=== PATIENT | female | born 1995 | race African-American/Black ===

== ENCOUNTER 2018-08-15 19:43 | Inpatient (IN) | payer OTHER ==
[~2018-08-15] VITALS: Ht 167.6 cm; Wt 70.8 kg
[2018-08-15] MEDS ORDERED: SODIUM CHLORIDE 0.9% 1,000 ML IV ONE (23:04)
[2018-08-15 23:07] LABS: BASOPHILS % 0.7 % (0.0-2.0); EOSINOPHILS % 0.2 % (0.0-5.0); HEMATOCRIT. 38.9 % (36.0-48.0); HEMOGLOBIN. 12.9 g/dL (12.0-16.0); LYMPHOCYTES % 29.8 % (20.0-50.0); MEAN CORPUSCULAR HEMOGLOBIN 30.2 pg (28.0-32.0); MEAN CORPUSCULAR VOLUME 91.2 fL (81.0-99.0); MEAN PLATELET VOLUME 9.2 fl (7.4-10.4); MONOCYTES % 7.2 % (2.0-8.0); NEUTROPHILS % 62.1 % (40.0-76.0); PLATELET 204 x1000/uL (130-400); RED BLOOD CELL COUNT 4.27 mill/uL (4.2-5.4); RED CELL DISTRIBUTION WIDTH 12.2 % (11.6-14.6)
[2018-08-15 23:12] LABS: CHLORIDE 106 mEq/L (98-107)
[2018-08-15 23:16] LABS: ETHANOL BLOOD < 10 mg/dL; HCG SCREEN NEGATIVE
[2018-08-15 23:17] LABS: CLARITY URINE TURBID (CLEAR); COLOR URINE YELLOW (YELLOW); KETONES URINE TRACE (NEGATIVE); LEUKOCYTE ESTERASE URINE 2+ (NEGATIVE); NITRITE URINE NEGATIVE (NEGATIVE); OCCULT BLOOD URINE NEGATIVE (NEGATIVE); PROTEIN URINE 1+ (NEGATIVE); SPECIFIC GRAVITY URINE 1.054 (1.005-1.030)
[2018-08-15 23:33] LABS: *AMPHETAMINES SCREEN URINE NEGATIVE (NEGATIVE); *BARBITURATES SCREEN URINE NEGATIVE (NEGATIVE)
[2018-08-15 23:34] LABS: *BENZODIAZEPINES SCREEN URINE NEGATIVE (NEGATIVE); *COCAINE SCREEN URINE NEGATIVE (NEGATIVE); METHADONE URINE SCREEN NEGATIVE (NEGATIVE); OPIATES URINE SCREEN NEGATIVE (NEGATIVE); PHENCYCLIDINE URINE SCREEN NEGATIVE (NEGATIVE)
[2018-08-15 23:35] LABS: CANNABINOID URINE SCREEN NEGATIVE (NEGATIVE)
[2018-08-16] MEDS ORDERED: CEFTRIAXONE 1 G PREMIX 50 ML IV SCH ×3 (02:44→21:00)
[2018-08-16 04:23] VITALS: BP 117/72
[2018-08-16 04:33] VITALS: BP 117/72
[2018-08-16] MEDS ORDERED: LORAZEPAM 2MG/ML CPJ IV PRN (06:15)
[2018-08-16] MEDS ORDERED: DOCUSATE SODIUM 100MG CAPSULE PO PRN (06:15)
[2018-08-16] MEDS ORDERED: IPRATROPIUM/ALBUTEROL 0.5-3(2.5)MG/3ML NEB INH PRN (06:15)
[2018-08-16] MEDS ORDERED: ONDANSETRON HCL 4MG/2ML INJ IV PRN (06:15)
[2018-08-16] MEDS ORDERED: GUAIFENESIN 200MG/10ML SUGAR FREE UDC PO PRN (06:15)
[2018-08-16] MEDS ORDERED: MAGNESIUM/ALUMINUM HYDROXIDE/SIMETHICONE 30ML UDC PO PRN (06:15)
[2018-08-16] MEDS ORDERED: ACETAMINOPHEN 325MG TABLET PO PRN (06:15)
[2018-08-16] MEDS ORDERED: HYDRALAZINE 20MG/ML VIAL IV PRN (06:15)
[2018-08-16] MEDS ORDERED: CLONIDINE 0.1MG TABLET PO PRN (06:15)
[2018-08-16 08:00] VITALS: BP 116/61
[2018-08-16] MEDS: SODIUM CHLORIDE 0.9% 1,000 ML IV SCH ×2 (08:22→18:51)
[2018-08-16 12:00] VITALS: BP 116/72
[2018-08-16 15:54] LABS: CREATINE KINASE 107 IU/L (26-192)
[2018-08-16 15:55] LABS: CREATINE KINASE MB FRACTION < 1.0 ng/mL (0.5-3.6)
[2018-08-16 16:00] VITALS: BP 115/65
[2018-08-16] MEDS ORDERED: SULF20OR7 PO (19:59)
[2018-08-16 20:38] VITALS: BP 128/68
[2018-08-16] MEDS: SODIUM CHLORIDE 0.9% INJ 3ML FLUSH IVF SCH (21:09)
[2018-08-16 23:59] LABS: CREATINE KINASE 119 IU/L (26-192)
[2018-08-17 00:01] LABS: CREATINE KINASE MB FRACTION < 1.0 ng/mL (0.5-3.6)
[2018-08-17 00:38] VITALS: BP 120/64
[2018-08-17 04:00] VITALS: BP 106/52
[2018-08-17] MEDS: SODIUM CHLORIDE 0.9% 1,000 ML IV SCH (04:00)
[2018-08-17] MEDS: SODIUM CHLORIDE 0.9% INJ 3ML FLUSH IVF SCH (06:32)
[2018-08-17 07:28] LABS: BASOPHILS % 0.6 % (0.0-2.0); EOSINOPHILS % 0.7 % (0.0-5.0); HEMATOCRIT. 35.3 % (36.0-48.0); HEMOGLOBIN. 11.9 g/dL (12.0-16.0); LYMPHOCYTES % 42.4 % (20.0-50.0); MEAN CORPUSCULAR HEMOGLOBIN 30.6 pg (28.0-32.0); MEAN CORPUSCULAR VOLUME 90.8 fL (81.0-99.0); MEAN PLATELET VOLUME 9.3 fl (7.4-10.4); MONOCYTES % 6.5 % (2.0-8.0); NEUTROPHILS % 49.8 % (40.0-76.0); PLATELET 196 x1000/uL (130-400); RED BLOOD CELL COUNT 3.88 mill/uL (4.2-5.4); RED CELL DISTRIBUTION WIDTH 12.3 % (11.6-14.6)
[2018-08-17 08:02] VITALS: BP 103/22
[2018-08-17 08:31] LABS: CHLORIDE 109 mEq/L (98-107)
[2018-08-17 10:37] VITALS: BP 103/22
== END 2018-08-17 12:28 | disposition home or self-care (01) | DRG 918 ==
LOC: ER 19:43 → 6WST 08-16 01:38 → EDBEDREQ 08-16 01:50 → EDBEDREQDT 08-16 01:50 → EDBEDREQTM 08-16 01:50 → ENRESERV 08-16 02:36
PROVIDERS: ADMIT Internal Medicine; ATTEND Internal Medicine
DX: T40.4X1A Poisoning by other synthetic narcotics, accidental (unintentional), initial encounter (principal); N39.0 Urinary tract infection, site not specified; S69.91XA Unspecified injury of right wrist, hand and finger(s), initial encounter; X58.XXXA Exposure to other specified factors, initial encounter; Y93.89 Activity, other specified; Y99.8 Other external cause status; Y92.89 Other specified places as the place of occurrence of the external cause; Z88.0 Allergy status to penicillin; Z88.1 Allergy status to other antibiotic agents
CPT/HCPCS: 36415; 80076; 80305; 80307; 80329; 82550; 82553; 84484; 84703; 93005; 96374; 99291; J0696; J7030